=== PATIENT | male | born 1995 | race Caucasian/White ===

== ENCOUNTER 2016-12-11 07:46 | Emergency (ER) | payer OTHER ==
[~2016-12-11] VITALS: Ht 177.8 cm; Wt 101.7 kg
[~2016-12-11 07:46] MED LIST: AMOX500C5 PO; TRM50T PO
--- OUTSIDE RECORDS SUMMARY | 2016-12-11 07:51 | XMS REPORT | Continuity of Care Document ---
Author Author [facility] Address Unknown Phone Unavailable Care Team Providers Care Service Unit Operator [employer] Name Role Phone TROY MATAMOROS MD PCP [phone] Insurance Providers Payer Name Policy Number Subscriber Name Relationship Self Pay Compa Wagoner Jr 18 Self / Same As Patient Advance Directives Directive Response Recorded Date/Time Advanced Directives No 07/24/16 6:49pm Chief Complaint and Reason for Visit Chief Complaint Respiratory Complaint Reason for Visit [id number] Problems Active Problems Medical Problem Onset Date Status Strep pharyngitis Unknown Acute Medications Current Home Medications Medication Dose Units Route Directions Days/Qty Instructions Start Date Amoxicillin 500 Mg 500 Mg ORAL Three Times A Day 30 07/24/16 Tramadol Hcl (Ultram) 50 Mg 1-2 Tab ORAL Every 6 Hours as needed for Pain 20 07/24/16 Social History Query Response Start Date Stop Date Smoking Status Never smoker Hospital Discharge Instructions No hospital discharge instructions. Plan of Care Discharge Date 07/24/16 8:06pm Disposition 01 HOME OR SELF-CARE Condition at Discharge Stable Instructions/Education Provided Strep Throat (DC) Prescriptions See Medication Section Referrals TROY MATAMOROS MD - Additional Instructions/Education ED THADDEUS if any worse. Amoxil, Ultram as directed. See your doctor if not greatly improved in 2-3 days. Some of your test results may not be complete prior to your leaving the Emergency Department. The Emergency Department is not authorized to give test results over the phone. Please contact the doctor's office listed in this packet of information for your final results. Follow up with your primary care physician or return to the Emergency Department for worsening or worrisome symptoms. * Emergency Department phone number: [phone], x [phone]* MEDICAL RECORD If you need copies of your X-rays, call [phone]. If you need copies of your medical record, including lab results, a signed authorization for release of records will be required. A telephone call for release of Health Information is not allowed. BILLING Billing can sometimes be confusing and frustrating. To help avoid confusion in the future, please take a moment to acquaint yourself with the billing parties for services. SERVICE BILLING [employer] Emergency Room Services [facility] Physician Services [facility] X-rays [facility] Patients will receive bills for services from the appropriate provider. If you have any questions about your [facility] bill, our staff will be happy to assist you. Please call [phone], and ask for the billing department. THANK YOU for choosing [facility] as your emergency care provider! Care Plan and Goals ~~Discharge Care Plan~~ Problem: Breathing difficulty Goal: Able to breathe without shortness of air and perform usual activities. Instructions: Take medication(s) as directed. Follow physician discharge instructions. Follow up with primary care physician as directed. Use inhalers as needed. Functional Status No functional status results. Allergies, Adverse Reactions, Alerts Allergen Type Severity Reaction Status Last Updated diphenhydramine Allergy Unknown Active 07/24/16 Immunizations No immunization records. Vital Signs Acute Vital Signs Vital Response Date/Time Temperature (Fahrenheit) 100.9 07/24/2016 8:05pm Pulse 118 bpm 07/24/2016 8:05pm Respirations 20 07/24/2016 8:05pm Height 5 ft 11 in Weight 211 lb Body Mass Index 29.0 kg/m^2 Results Laboratory Results Test Name Result Units Flags Reference Collection Date/Time Result Date/ Time Comments Streptococcus Screen Positive H Negative 07/24/2016 7:10pm 07/24/2016 7:25pm Procedures No known history of procedures. Encounters Encounter Location Arrival/Admit Date Discharge/Depart Date Attending Provider Registered Emergency Room [facility] 07/24/16 6:38pm JOBY MERCER MD Recent Diagnosis
[2016-12-11] MEDS ORDERED: ACET-2264 PO (08:03)
[2016-12-11 08:33] LABS: BASOPHILS % (AUTO) 0 % (0-2); EOSINOPHILS # (AUTO) 0.2 10^3uL; EOSINOPHILS % (AUTO) 2 % (0-4); LYMPHOCYTES # (AUTO) 2.9 X10^3; MEAN CORPUSCULAR HEMOGLOBIN 28.2 PG (26.0-34.0); MEAN CORPUSCULAR HGB CONC 35.3 g/dL (31.0-37.0); MEAN CORPUSCULAR VOLUME 80 FL (80-100); MONOCYTES # (AUTO) 0.8 X10^3; MONOCYTES % (AUTO) 9 % (3-11); NEUTROPHILS # (AUTO) 4.3 X10^3; NEUTROPHILS % (AUTO) 53 % (51-67); PLATELET COUNT 228 10^3uL (150-450); WHITE BLOOD COUNT 8.14 10^3uL (4.0-11.0)
--- NOTE | 2016-12-11 08:57 | Diagnostic Imaging Report ---
INDICATION: Productive cough. PA and lateral chest. Heart size and pulmonary vascularity are normal. Lungs are clear. There are no effusions or pneumothoraces. IMPRESSION: Negative chest. Dictated by: Dictated on workstation # [id number]
[2016-12-11] MEDS ORDERED: AMOX500C5 PO (08:59)
[2016-12-11] MEDS ORDERED: HYDR-3702 PO (09:10)
[2016-12-11 09:19] VITALS: BP 136/83
== END 2016-12-11 09:19 | disposition home or self-care (01) ==
LOC: ED 07:50
DX: J02.0 Streptococcal pharyngitis (principal); R07.89 Other chest pain
CPT/HCPCS: 36415; 71020; 84484; 85025; 87651; 93005; 93010; 99282; 99284